=== PATIENT | female | born 1990 | race Two or more races ===

== ENCOUNTER 2023-12-31 21:26 | Emergency (ER) | payer MEDICAID ==
[~2023-12-31] VITALS: Ht 167.6 cm; Wt 63.5 kg
[2023-12-31 21:50] VITALS: TEMP 97.9
[2023-12-31] MEDS ORDERED: HYDR-4902 PO (22:32)
[2023-12-31] MEDS ORDERED: IBUP-1454 PO (22:32)
[2023-12-31] MEDS: MORPHINE SULFATE 4 MG/ML SYR/VIAL IV ONE (22:48)
[2023-12-31] MEDS: ONDANSETRON HCL 4 MG/2 ML VIAL IV ONE (22:49)
[2023-12-31 23:41] VITALS: BP 122/77; PULSE 85; RESP 18; O2SAT 98
== END 2023-12-31 23:36 | disposition home or self-care (01) ==
LOC: EDBD 21:26 → ER 21:26
DX: S52.044A Nondisplaced fracture of coronoid process of right ulna, initial encounter for closed fracture (principal); V49.9XXA Car occupant (driver) (passenger) injured in unspecified traffic accident, initial encounter; W22.11XA Striking against or struck by driver side automobile airbag, initial encounter; Y93.89 Activity, other specified; Y92.89 Other specified places as the place of occurrence of the external cause; Y99.8 Other external cause status
CPT/HCPCS: 73080; 73090; 96374; 96375; 99285; J2270; J2405